=== PATIENT | male | born 1965 | race Caucasian/White ===

== ENCOUNTER 2021-09-29 07:10 | Day surgery (SDC) | payer BC ==
[2021-09-29] MEDS ORDERED: Propofol 200 MG/20 ML SDV ONE (07:20)
[2021-09-29] MEDS ORDERED: Midazolam 1 MG/ML 2 ML SDV ONE (07:20)
--- NOTE | 2021-09-29 07:55 | PCM.PREANE ---
Preanesthetic Assessment - Procedure Proposed Procedure: Colonoscopy - Anesthesia/Transfusion/Family Hx Anesthesia History: No Prior Anesthesia Family History of Anesthesia Reaction: No Transfusion History: No Prior Transfusion(s) - Review of Systems General: No Symptoms Pulmonary: No Symptoms Cardiovascular: No Symptoms Gastrointestinal: No Symptoms (GERD- takes OTC prilosec) Neurological: No Symptoms Other: Reports: None - Physical Assessment NPO Status Date: 09/27/21 NPO Status Time: 19:00 (Solids, >8Hr Liq) Vital Signs: Last Vital Signs Temp 98.1 F 09/29/21 07:37 Pulse 100 09/29/21 07:37 Resp 16 09/29/21 07:37 BP 138/72 09/29/21 07:37 Pulse Ox 95 09/29/21 07:37 Height: 6 ft 2 in Weight: 90.718 kg ASA Class: 2 Mental Status: Alert & Oriented x3 Airway Class: Mallampati = 2 Dentition: Reports: Normal Dentition Thyro-Mental Finger Breadths: 3 Mouth Opening Finger Breadths: 3 ROM/Head Extension: Full Lungs: Clear to Auscultation, Normal Respiratory Effort Cardiovascular: Regular Rate, Regular Rhythm - Allergies Allergies/Adverse Reactions: Allergies Allergy/AdvReac Type Severity Reaction Status Date / Time peanut Allergy flu like Verified 09/25/21 09:22 symptoms Penicillins Allergy Rash Verified 09/25/21 07:42 - Acknowledgements Anesthesia Type Planned: General Anesthesia Pt an Appropriate Candidate for the Planned Anesthesia: Yes Alternatives and Risks of Anesthesia Discussed w Pt/Guardian: Yes Pt/Guardian Understands and Agrees with Anesthesia Plan: Yes PreAnesthesia Questionnaire - Past Health History Medical/Surgical History: Denies Medical/Surgical History HEENT History: Reports: Allergic Rhinitis, Other (See Below) Other HEENT History: wears glasses Cardiovascular History: Reports: Heart Murmur Respiratory History: Reports: Other (See Below) Other Respiratory History: denies any lung problems, has prescribed "inhaler for seasonal allergies" Gastrointestinal History: Reports: GERD Genitourinary History: Reports: None Musculoskeletal History: Reports: Fracture Other Musculoskeletal History: hx fx arm Neurological History: Reports: None Psychiatric History: Reports: None Endocrine/Metabolic History: Reports: None Hematologic History: Reports: Anemia Immunologic History: Reports: None Oncologic (Cancer) History: Reports: None Dermatologic History: Reports: None - Past Surgical History Head Surgeries/Procedures: Reports: None HEENT Surgical History: Reports: None Cardiovascular Surgical History: Reports: None Respiratory Surgical History: Reports: None GI Surgical History: Reports: None Male Surgical History: Reports: None Endocrine Surgical History: Reports: None Neurological Surgical History: Reports: None Musculoskeletal Surgical History: Reports: None Oncologic Surgical History: Reports: None Dermatological Surgical History: Reports: None - SUBSTANCE USE Tobacco Use Status *Q: Current Every Day Tobacco User Tobacco Use Within Last Twelve Months: Cigarettes - HOME MEDS Home Medications: Home Meds Albuterol Sulfate [Albuterol Sulfate Hfa] 1 - 2 puff INH ASDIRECTED PRN 09/25/21 [History] Cetirizine [ZyrTEC] 10 mg PO ASDIRECTED PRN 09/25/21 [History] Omeprazole Magnesium [Prilosec Otc] 20 mg PO ASDIRECTED PRN 09/25/21 [History] Sildenafil Citrate 20 mg PO ASDIRECTED PRN 09/25/21 [History] - CURRENT (IN HOUSE) MEDS Current Meds: Current Medications Lactated Ringer's (Ringers, Lactated) 1,000 mls @ 125 mls/hr IV ASDIRECTED CLAY Discontinued Medications Midazolam HCl (Midazolam 1 Mg/Ml 2 Ml Sdv) Confirm Administered Dose 2 mg .ROUTE .STK-MED ONE Stop: 09/29/21 07:21 Propofol (Propofol 200 Mg/20 Ml Sdv) Confirm Administered Dose 400 mg .ROUTE .STK-MED ONE Stop: 09/29/21 07:21
--- NOTE | 2021-09-29 09:10 | PCM.OPNOTE ---
- General Post-Op/Procedure Note Date of Surgery/Procedure: 09/29/21 Operative Procedure(s): Colonoscopy and polypectomy Findings: Three polyps at 20 cm dictation number [id number] Pre Op Diagnosis: Screening colonoscopy Post-Op Diagnosis: Three polyps at 20 cm Anesthesia Technique: Moderate Sedation Primary Surgeon: Boone Rodriguez Pathology: colon polyps Complications: None Condition: Good
--- NOTE | 2021-09-29 09:17 | PCM.POSTAN ---
POST ANESTHESIA ASSESSMENT - MENTAL STATUS Mental Status: Alert, Oriented - VITAL SIGNS Vital Signs: Last Vital Signs Temp 98.1 F 09/29/21 07:37 Pulse 100 09/29/21 07:37 Resp 16 09/29/21 07:37 BP 138/72 09/29/21 07:37 Pulse Ox 95 09/29/21 07:37 - RESPIRATORY Respiratory Status: Respiratory Rate WNL, Airway Patent, O2 Saturation Stable - CARDIOVASCULAR CV Status: Pulse Rate WNL, Blood Pressure Stable - GASTROINTESTINAL GI Status: No Symptoms - PAIN Pain Score: 0 - POST OP HYDRATION Hydration Status: Adequate & Stable
--- NOTE | 2021-09-29 09:27 | PCM48HPAN ---
Post Anesthesia Note - EVALUATION WITHIN 48HRS OF ANESTHETIC Vital Signs in Normal Range: Yes Patient Participated in Evaluation: Yes Respiratory Function Stable: Yes Airway Patent: Yes Cardiovascular Function Stable: Yes Hydration Status Stable: Yes Pain Control Satisfactory: Yes Nausea and Vomiting Control Satisfactory: Yes Mental Status Recovered: Yes Vital Signs: Last Vital Signs Temp 97.0 F 09/29/21 09:12 Pulse 81 09/29/21 09:22 Resp 14 09/29/21 09:22 BP 104/71 09/29/21 09:22 Pulse Ox 98 09/29/21 09:22 - COMMENTS/OBSERVATIONS Free Text/Narrative:: Pt doing well post-op. VSS. No apparent anesthetic complications. Dr. Jeffry Muse
[2021-09-29] MEDS ORDERED: Lactated Ringers 1,000 ML IV SCH (12:45)
--- NOTE | 2021-09-29 16:44 | OR ---
SURGEON: NIGHAT BLACKWELL MD DATE OF PROCEDURE: 09/29/2021 PREOPERATIVE DIAGNOSIS: Screening colonoscopy. POSTOPERATIVE DIAGNOSIS: 3 smaller polyps right at about 20 cm. PROCEDURE PERFORMED: 1. Colonoscopy. 2. Hot snare polypectomy. 3. Cold snare polypectomy. PRIMARY SURGEON: Nighat Blackwell MD BOWEL PREP: Excellent. EXTENT OF COLONOSCOPY: To the cecum. LIMITATIONS: None. REASON FOR PROCEDURE: The patient is a pleasant 56-year-old gentleman. This will be his first colonoscopy. Denies any family history of colon cancer. He denies any blood in his stool, but he does report every once in a while having some blood when he wipes. PROCEDURE IN DETAIL: Physical examination was performed. The major risks and benefits associated with the procedure were explained to the patient in detail. The patient verbalized understanding and agreement with the same. The patient was then connected to appropriate monitoring device and IV started. EKG, pulse, pulse oximetry, blood pressure, and capnography were monitored throughout the entire procedure. Continuous oxygen and sedation were provided by the anesthesiologist. The patient was placed in left lateral decubitus position. Sedation was began. After adequate sedation was achieved, a digital rectal exam was performed. No rectal masses or polyps were felt. Now, a well-lubricated Olympus colonoscope was inserted into the rectum and advanced under direct visualization to the level of the cecum. The cecum was identified by both visual and anatomic landmarks. Photographs were taken of the cecal cap and the ileocecal valve. The scope was then slowly withdrawn in somewhat circular fashion looking at the color, texture, anatomy, and integrity of mucosa from the cecum to the anal canal. The patient kind of had a small cluster of polyps right about 20 cm. The large one was removed with hot snare polypectomy. Two smaller ones were removed with cold snare polypectomy. There was good hemostasis, appeared to be completely removed. The scope was retroflexed in the rectum, did have some noninflamed internal hemorrhoids. The scope was completely removed and the procedure was terminated. ENDOSCOPIC DIAGNOSIS: 3 smaller polyps at about 20 cm. RECOMMENDATIONS: Followup colonoscopy will depend on the pathology, but most likely will need one in 5 years, sooner if he develops signs or symptoms such as change in bowel habits or blood in the stool. PRECIOUS / VICKY /[id number]
== END 2021-09-29 09:56 | disposition home or self-care (01) ==
LOC: MW.SDS 07:10
PROVIDERS: ATTEND Surgery
DX: Z12.11 Encounter for screening for malignant neoplasm of colon (principal); K63.5 Polyp of colon; K64.8 Other hemorrhoids; E78.00 Pure hypercholesterolemia, unspecified; N52.9 Male erectile dysfunction, unspecified; Z91.010 Allergy to peanuts; Z88.0 Allergy status to penicillin; Z79.899 Other long term (current) drug therapy
CPT/HCPCS: 45385; J2250; J2704; 00812